=== PATIENT | male | born 1990 | race Caucasian/White ===

== ENCOUNTER 2022-10-19 15:45 | Emergency (ER) | payer OTHER, SELFPAY ==
[2022-10-19 15:51] VITALS: BP 157/95; PULSE 85; RESP 16; TEMP 36.8; O2SAT 100
--- NOTE | 2022-10-19 15:56 | ECG_ITS ---
Measurements Intervals [place] Rate: 74 P: 23 AK: 146 QRS: 43 QRSD: 113 T: 22 QT: 366 QTc: 407 Interpretive Statements SINUS RHYTHM INCOMPLETE RIGHT BUNDLE BRANCH BLOCK BORDERLINE ECG NO PREVIOUS ECG AVAILABLE FOR COMPARISON Electronically Signed On 10-19-2022 16:14:52 [employer] by Mitesh Willson D.O.
--- NOTE | 2022-10-19 15:59 | ED.CHESTPAIN ---
HPI - Chest Pain General Chief Complaint: Chest Pain Stated Complaint: Chest Pain Time Seen by Provider: 10/19/22 15:50 Source: patient and RN notes reviewed History of Present Illness HPI narrative: patient is a 32-year-old male who presents to the Urgent Care with his girlfriend with complaints of anterior left chest pain radiating down the left arm with numbness and tingling. Patient also reports recent headaches and elevated blood pressure. Patient has not been treated for elevated blood pressure in the past. States that he does monitor it. Denies any cardiac history. Denies any changes in vision, nausea or vomiting. No other acute complaints. No acute distress noted. Patient aware of the plan of care. Some parts of this dictation were generated by voice recognition software and may contain typographical and/or grammatical inaccuracies. Related Data Home Medications Medication Instructions Recorded Confirmed No Home Medications 10/19/22 10/19/22 Allergies Allergy/AdvReac Type Severity Reaction Status Date / Time No Known Allergies Allergy Verified 10/19/22 16:12 Review of Systems Review of Systems: CONSTITUTIONAL: Denies fever, chills, or sweats. EYES: Denies visual changes, redness, or discharge. ENT: Denies rhinorrhea, congestion, sore throat, or otalgia. CARDIOVASCULAR: reports of anterior chest discomfort radiating down the left arm RESPIRATORY: Denies cough or dyspnea. GASTROINTESTINAL: Denies abdominal pain, nausea, vomiting, or diarrhea. GENITOURINARY: Denies dysuria or hematuria. SKIN: Denies rash or itching. MUSCULOSKELETAL: Denies back pain, joint pain, or myalgia. NEUROLOGIC: reports numbness and tingling down the left arm. Reports of headache All other systems reviewed are negative, except as documented in HPI. PMFSH Comments At the time of my signature, I reviewed and agree with the nursing past medical, surgical, social, and family history. There is no relevant family history pertinent to the patient complaint. Exam Narrative: GENERAL: This is a well-nourished, well-developed patient, in no apparent distress. HEAD: normocephalic, atraumatic. EYES: PERRL. Sclera clear/white. Vision is grossly intact. EARS: External ears normal NOSE: External nose normal with no obvious nasal discharge, nares without redness, no rhinorrhea. THROAT: Mucous membranes moist NECK: Neck supple CARDIOVASCULAR: Regular rate and rhythm RESPIRATORY: Clear to auscultation. Breath sounds equal bilaterally. No wheezes, rales, or rhonchi. SKIN: warm, intact with no suspicious lesions or rash, good texture and turgor. NEURO: awake, alert, and oriented to person, place and time. There were no obvious focal neurologic abnormalities. EXTREMITIES: No clubbing, cyanosis, or edema. Course Course Level of Care: Express Care Visit Vital Signs Vital signs: Vital Signs Temperature 98.2 F 10/19/22 15:51 Pulse Rate 85 10/19/22 15:51 Respiratory Rate 16 10/19/22 15:51 Blood Pressure 157/95 H 10/19/22 15:51 Pulse Oximetry 100 10/19/22 15:51 Oxygen Delivery Room Air 10/19/22 15:51 Temperature 98.2 F 10/19/22 15:51 Pulse Rate 85 10/19/22 15:51 Respiratory Rate 16 10/19/22 15:51 Blood Pressure 157/95 H 10/19/22 15:51 Pulse Oximetry 100 10/19/22 15:51 Oxygen Delivery Room Air 10/19/22 15:51 Reviewed- Patient is informed that they may have pre-hypertension or hypertension based on a blood pressure reading in the department. I recommend the patient call the primary care provider listed on their discharge instructions or a physician of their choice this week to arrange follow-up for further evaluation of possible pre-hypertension or hypertension. Transfer Transfered to: [facility] Transportation: Other ( private car, refused EMS transfer) Transfer rationale: chest pain, numbness and tingling down the left arm, headache and elevated BP Accepting physician: Dr. Tamayo
== END 2022-10-19 16:28 | disposition short-term general hospital (02) ==
PROVIDERS: Emergency Provider Nurse Practitioner Family
DX: R07.9 Chest pain, unspecified (principal)
CPT/HCPCS: 93005; 99213; G0463

== ENCOUNTER 2023-08-22 13:36 | Emergency (ER) | payer BC, SELFPAY ==
[2023-08-22 13:43] VITALS: BP 155/89; PULSE 73; RESP 20; TEMP 36.3; O2SAT 100
[2023-08-22 13:46] VITALS: BP 155/89; PULSE 73; RESP 20; TEMP 36.3; O2SAT 100
--- NOTE | 2023-08-22 14:05 | ED.URI ---
HPI - URI/Sore Throat General Chief Complaint: Upper Respiratory Infection Stated Complaint: Sinus Congestion Time Seen by Provider: 08/22/23 14:06 Source: patient, RN notes reviewed and old records reviewed Mode of arrival: ambulatory Limitations: no limitations History of Present Illness HPI Narrative: 33 year [facility] complaints of 2 day history of sinus congestion,drainage and some sinus pain, cough and also some headache discomfort. Patient reports that he has not had any fevers, chills or sweats, admits to some body aches.Patient reports that his headache is an 8/10 and reports his pain as aching constant. MD elicited complaint: cough, rhinorrhea, nasal congestion, sinus pain and other (body aches) Onset (ago): day(s) (2) Pain scale (0-10): 8 Able to tolerate fluids by mouth: Yes Treatments prior to arrival: other (sinus relief medication) Related Data Home Medications Medication Instructions Recorded Confirmed amlodipine 10 mg tablet 10 mg PO DAILY 08/22/23 08/22/23 omeprazole 20 mg capsule,delayed 20 mg PO DAILY 08/22/23 08/22/23 release Allergies Allergy/AdvReac Type Severity Reaction Status Date / Time No Known Allergies Allergy Verified 08/22/23 13:47 Review of Systems Review of Systems: CONSTITUTIONAL: Reports malaise, denies any chills, sweats, or fever. EYES: Denies visual changes, redness, or discharge. ENT: Reports rhinorrhea, congestion, sinus pain, no otalgia and no sore throat. CARDIOVASCULAR: Denies chest pain, palpitations, or edema. RESPIRATORY: Reports cough.? Denies dyspnea. GASTROINTESTINAL: Denies abdominal pain, nausea, vomiting, diarrhea SKIN: Denies rash or itching. MUSCULOSKELETAL: Reports myalgia. NEUROLOGIC: Reports headache. All systems reviewed & are unremarkable except as noted in HPI and below PMFSH Past Medical History Medical History (Updated 08/23/23 @ 13:16 by Pauline Forrest NP) GERD (gastroesophageal reflux disease) Hypertension Social History Social History (Updated 08/23/23 @ 13:15 by Pauline Forrest NP) Smoking packs per day: 0.75 Smoking cigarettes per day: 15.0 Years smoked: 20 Smoking pack-years: 15.00 Smoking status: Current every day smoker Tobacco type: cigarettes Additional smoking assessment comments: trying to quit down to pack every 3-4 days Alcohol intake: current Alcohol use details: social Substance use type: does not use Last use: social Living arrangements: with family Gender identity (if verbalized by the patient): Male Comments At time of signature, agree with nursing past medical, surgical, social and family history. There is no relevant family history pertinent to the presenting complaint Exam Narrative: GENERAL: Well-appearing, well-nourished, and in no acute distress. HEAD: Normocephalic EYES: PERRLA, conjunctivae clear ENT: Nares clear, turbinates edematous and erythematous, clear to light yellow discharge. Mucous membranes moist. TM pearly bartholomew with dull light reflex bilaterally; no tragal tenderness. Oropharynx erythematous without lesions. Tonsils enlarged and without exudate, no drooling, no hoarseness, no trismus, uvula midline.post nasal drainage NECK: Supple.lymphadenopathy CHEST: Clear to auscultation, breath sounds equal. No wheezing, rhonchi, rales, or stridor. No respiratory distress, speaks in full sentences.cough,SAO2 100% on room air HEART: Regular rate and rhythm. No murmur heard. SKIN: Warm, dry, no rash. NEURO: Alert and oriented x3. PSYCH: Normal mood and affect Course Course Emergency Course: Patient is aware of diagnosis, understands and agrees to treatment plan.? Anticipatory guidance given.? Patient agrees to follow-up as directed and is aware of reasons to seek care at the emergency department. Portions of this record may have been created with voice recognition software Level of Care: [facility]
== END 2023-08-22 14:20 | disposition home or self-care (01) ==
PROVIDERS: Emergency Provider Registered Nurse
DX: U07.1 COVID-19 (principal); I10 Essential (primary) hypertension; F17.210 Nicotine dependence, cigarettes, uncomplicated; Z79.899 Other long term (current) drug therapy
CPT/HCPCS: 87081; 87880; 99213; G0463